=== PATIENT | female | born 1960 | race Caucasian/White ===

== ENCOUNTER 2023-10-17 05:53 | Day surgery (SDC) | payer OTHER ==
[2023-10-17] VITALS (15 sets, daily range): BP systolic 101–149; BP diastolic 71–131
[~2023-10-17] VITALS: Ht 170.2 cm; Wt 77.9 kg
[~2023-10-17 05:53] MED LIST: BUPR75 PO; ESCI20 PO; FLUSAL1005 IH; GABA100 PO; HYDACE5 PO; IBUP800 PO; MELO7.5 PO; Percocet 5-3251 EACH PO; TRAZ50 PO; Ultram50 MG PO
[2023-10-17] MEDS ORDERED: TRANEXAMIC ACID IV SCH (06:30)
[2023-10-17] MEDS ORDERED: Lactated Ringer's 1,000 ML IV SCH ×2 (06:30→07:50)
[2023-10-17] MEDS ORDERED: Chlorhexidine Mouth Care 15 ML UDC MT SCH (06:30)
[2023-10-17] MEDS ORDERED: OxyCODONE HCL 10 MG TABCR PO SCH (06:30)
[2023-10-17] MEDS ORDERED: CeFAZolin Sodium 2,000 MG in NS 100 ML IV SCH ×2 (06:30→15:30)
[2023-10-17] MEDS ORDERED: Ropivacaine 0.5% HCl/Pf 123.125 MG,EPINEPHrine HCL 0.25 MG,Ketorolac Tromethamine 15 MG... INFIL SCH (06:30)
[2023-10-17] MEDS ORDERED: NS IV SCH (06:30)
[2023-10-17] MEDS ORDERED: Acetaminophen 500 MG Tab PO SCH ×2 (06:30→08:00)
[2023-10-17] MEDS ORDERED: Dexmedetomidine HCL 200 MCG / 2 ML ONE (07:01)
--- NOTE | 2023-10-17 07:04 | NUR ---
History, Chart, Medications and Allergies reviewed before start of procedure. Patient States Post-Procedure ride home has been arranged WITH SON DWAYNE. Ambulatory in [facility]. Pre-Op teaching done. Pt verbalizes understanding. BELONGINGS PLACED IN BAG AND PLACED UNDER GURN IN PRE OP, INCLUDING PT'S PURSE. GLASSES REMOVED AND PLACED IN PACU WITH PT IDENTIFYING STICKER.
[2023-10-17] MEDS ORDERED: Midazolam HCl 1MG / ML 2ML Vial IV ONE (07:10)
[2023-10-17] MEDS ORDERED: FentaNYL Citrate 50 MCG/ML 2 ML Injection ONE (07:14)
[2023-10-17] MEDS ORDERED: DiphenhydrAMINE HCL 25 MG Cap PO PRN (07:40)
[2023-10-17] MEDS ORDERED: Promethazine HCl 25 MG Tab PO PRN (07:45)
[2023-10-17] MEDS ORDERED: Metoclopramide HCl 5MG / ML 2ML Vial IV PRN (07:45)
[2023-10-17] MEDS ORDERED: Prochlorperazine Edisylate 10 mg Vial IV PRN (07:45)
[2023-10-17] MEDS ORDERED: Bisacodyl 10 MG Supp PR PRN (07:45)
[2023-10-17] MEDS ORDERED: OxyCODONE HCL 5 MG TAB PO PRN ×2 (07:45)
[2023-10-17] MEDS ORDERED: Magnesium Hydroxide Conc 10 ML UDC PO PRN (07:50)
[2023-10-17] MEDS ORDERED: HYDROmorphone HCl/Pf 1MG SYR IV PRN (07:50)
[2023-10-17] MEDS ORDERED: Ondansetron HCl 2 MG / ML 2ML Vial IV PRN (07:50)
[2023-10-17] MEDS ORDERED: Phenylephrine HCl 100 MCG/ML-NS 10MLSYR (1MG/10ML) ONE (08:00)
[2023-10-17] MEDS ORDERED: ePHEDrine Sulfate 50 MG/ML 1ML Injection ONE (08:00)
--- NOTE | 2023-10-17 08:21 | NUR ---
10/17/23 0821 Tere Cartwright SPINAL NERVE BLOCK COMPLETED BY GENNARO CASEY UPON ENTRY TO OR. PT TOLERATED WELL.
[2023-10-17] MEDS ORDERED: BuPROPion HCl 75 MG Tab PO SCH (09:00)
[2023-10-17] MEDS ORDERED: Docusate Sodium 100 MG Cap PO SCH (09:00)
[2023-10-17] MEDS ORDERED: Gabapentin 100 MG Cap PO SCH (09:00)
--- NOTE | 2023-10-17 10:30 | NUR ---
PT ARRIVED TO THE ROOM POST-OP. PT DENIES PAIN. VSS. PT TOLERATING SIPS OF ICE WATER AND CRACKERS.
[2023-10-17] MEDS ORDERED: ASPI81CH PO (11:49)
[2023-10-17] MEDS ORDERED: OXYC5 PO (11:51)
[2023-10-17] MEDS ORDERED: ACET500 PO (11:55)
[2023-10-17] MEDS ORDERED: Ketorolac Tromethamine 15mg Vial IV SCH (12:00)
--- NOTE | 2023-10-17 15:17 | NUR ---
DISCHARGE PT PROVIDED WITH WRITTEN AND VERBAL DISCHARGE INSTRUCTIONS, REPORTED UNDERSTANDING. PT CLEARED THERAPY, TOLERATED PO, PAIN MANAGED, VSS AND ABLE TO VOID PRIOR TO DISCHARGE. DR. SALAZAR NOTIFIED OF DISCHARGE TODAY. PT ASSISTED OUT AT 1446.
[2023-10-18] MEDS ORDERED: Aspirin 81 MG Chew PO SCH (09:00)
== END 2023-10-17 14:51 | disposition home or self-care (01) ==
LOC: ORSCMMR 05:53 → ORD 07:30 → SURS 10:26 → ORSCMMR 14:51
PROVIDERS: Orthopaedic Surgery
PROC: 0SRB0JA Replacement of Left Hip Joint with Synthetic Substitute, Uncemented, Open Approach (ICD-10-PCS; principal; 2023-10-17 07:30)
DX: M16.12 Unilateral primary osteoarthritis, left hip (principal); I10 Essential (primary) hypertension; F17.210 Nicotine dependence, cigarettes, uncomplicated; Z79.899 Other long term (current) drug therapy
CPT/HCPCS: 72170; 97110; 97116; 97162; 97530; A9270; C1713; C1776; J0171; J0690; J0735; J1885; J2250; J2371; J2704; J2795; J3010; J7120